=== PATIENT | female | born 1970 ===

== ENCOUNTER 2017-01-22 18:40 | Emergency (ER) | payer OTHER ==
[2017-01-22 18:41] VITALS: BMI 32.4
[2017-01-22 18:49] VITALS: BP 144/83; PULSE 91; RESP 16; TEMP 97.9; O2SAT 98
--- NOTE | 2017-01-22 19:58 | ED PDOC ---
HPI: Abdomen Time Seen by Provider: 01/22/17 19:08 Chief Complaint (Nursing): Abdominal Pain History Per: Patient History/Exam Limitations: no limitations Onset/Duration Of Symptoms: Days Outside of [place] travel?: No Current Symptoms Are (Timing): Still Present Severity: Moderate Location Of Pain/Discomfort: RUQ Quality Of Discomfort: "Pain" Associated Symptoms: Nausea, Diarrhea. denies: Fever, Chills, Vomiting, Loss Of Appetite, Back Pain, Chest Pain, Constipation, Urinary Symptoms Exacerbating Factors: None Alleviating Factors: None Last Bowel Movement: Today Additional History Per: Patient Additional Complaint(s): 47 y/o female complaining of intermittent right upper quadrant abominal pain over the last two weeks, today the pain has been persistent prompting her visit here. She also complains of nausea without vomiting, and one episode of diarrhea this morning that is now resolved. Her appetite has been normal, and food has not exacerbated her pain. She also denies any urinary complaints. PMD: Dr. Teixeira Past Medical History Vital Signs: Last Vital Signs Temp 97.9 F 01/22/17 18:46 Pulse 91 H 01/22/17 18:46 Resp 16 01/22/17 18:46 BP 144/83 01/22/17 18:46 Pulse Ox 98 01/22/17 21:54 - Medical History PMH: Diabetes, HTN, Hypercholesterolemia Denies: Colonic Polyps, Fractures - Surgical History Surgical History: Tonsillectomy Other surgeries: Hysterectomy - Family History Family History: States: Diabetes, Hypertension - Social History Current smoker - smoking cessation education provided: No Ex-Smoker (has not smoked in the last 12 months): No Alcohol: Occasional Drugs: Denies - Home Medications Home Medications: Ambulatory Orders Medication Instructions Recorded Glimepiride [amaRYL] 4 mg PO BID 08/10/15 Insulin Lispro [Humalog Kwikpen 26 unit SC ACBL 08/10/15 U-200] Insulin Lispro [Humalog Kwikpen 32 unit SC DIN 08/10/15 U-200] Sitagliptin Phos/Metformin HCl 1 tab PO BID 08/10/15 [Janumet 50-1,000 mg Tablet] Sucralfate [Carafate] 1 gm PO QID PRN #20 dose 01/22/17 - Allergies Allergies/Adverse Reactions: Allergies Allergy/AdvReac Type Severity Reaction Status Date / Time No Known Allergies Allergy Verified 10/16/16 08:16 Review of Systems ROS Statement: Except As Marked, All Systems Reviewed And Found Negative Gastrointestinal: Positive for: Nausea, Abdominal Pain Physical Exam - Reviewed Nursing Documentation Reviewed: Yes Vital Signs Reviewed: Yes - Physical Exam Appears: Positive for: Non-toxic, In Acute Distress Head Exam: Positive for: ATRAUMATIC, NORMOCEPHALIC Skin: Positive for: Warm, Dry. Negative for: Jaundice Eye Exam: Positive for: EOMI, PERRL. Negative for: Scleral icterus ENT: Negative for: Pharyngeal Erythema, Tonsillar Exudate Neck: Positive for: Painless ROM, Supple Cardiovascular/Chest: Positive for: Regular Rate, Rhythm, Chest Non Tender. Negative for: Murmur Respiratory: Positive for: Normal Breath Sounds. Negative for: Wheezing Gastrointestinal/Abdominal: Positive for: Bowel Sounds, Soft, Tenderness (RUQ ttp). Negative for: Mass, Distended, Guarding, Rebound Back: Positive for: Normal Inspection. Negative for: Decreased ROM Extremity: Positive for: Normal ROM. Negative for: Deformity Lymphatic: Negative for: Adenopathy Neurologic/Psych: Positive for: Alert. Negative for: Motor/Sensory Deficits - Laboratory Results Result Diagrams: 01/22/17 19:41 01/22/17 19:41 - ECG O2 Sat by Pulse Oximetry: 98 (RA) Pulse Ox Interpretation: Normal Medical Decision Making Medical Decision Making: Impression: RUQ pain, differential includes cholelithiasis, cholecystitis, gastritis, pancreatitis, and hepatitis. Plan: - Labs - US Gallbladder and Hepatic EXAM: US Abdomen Limited, Right Upper Quadrant CLINICAL HISTORY: 47 years old, female; Pain; Abdominal pain; Epigastric; Additional info: Ruq pain TECHNIQUE: Real-time ultrasound of the right upper quadrant with image documentation. COMPARISON: US - ABDOMEN COMPLETE 08/10/2015 1:20:04 PM FINDINGS: Liver: Fatty infiltration of the liver. Associated hepatomegaly. No intrahepatic bile duct dilation. Gallbladder: Unremarkable. No gallstones. Common bile duct: Common bile duct measures 4 mm in diameter. No stones. No dilation. Pancreas: Unremarkable as visualized. Right kidney: Unremarkable. No stones. No solid mass. No hydronephrosis. IMPRESSION: Fatty infiltration of the liver. Associated hepatomegaly. Thank you for allowing us to participate in the care of your patient. Dictated and Authenticated by: Aaron Gimenez MD 01/22/2017 9:21 PM Eastern Time ([place] & [place]) Labs demonstrate mild hyperglycemia and mild dehydration. Results discussed with patient. Stable for dc. FU with GI Attestation Scribe Attestation: Documented by Nia Goodrich acting as a scribe for Dixie Leija MD. Scribe Attestation: All medical record entries made by the Scribe were at my direction and personally dictated by me. I have reviewed the chart and agree that the record accurately reflects my personal performance of the history, physical exam, medical decision making, and the department course for this patient. I have also personally directed, reviewed, and agree with the discharge instructions and disposition. Disposition - Clinical Impression Clinical Impression: Abdominal pain, Dehydration - Patient ED Disposition Is Patient to be Admitted: No Doctor Will See Patient In The: Office Counseled Patient/Family Regarding: Studies Performed, Diagnosis, Need For Followup - Disposition Referrals: Luis Carlos Bhatia MD [Medical Doctor] - (CALL TOMORROW FOR FOLLOWUP APPOINTMENT IN 1-2 WEEKS) Disposition: Routine/Home Disposition Time: 21:54 Condition: STABLE Prescriptions: Sucralfate [Carafate] 1 gm PO QID PRN #20 dose PRN Reason: Abdominal pain Instructions: Abdominal Pain (ED), Diabetic Hyperglycemia (ED) Forms: [employer] (Cook Islander)
[2017-01-22 20:07] LABS: BASO % 0.4 % (0.0-2.0); EOS # 0.3 K/uL (0.0-0.7); EOS % 2.9 % (0.0-4.0); HEMATOCRIT 39.6 % (34.0-47.0); LYMPH # 3.6 K/uL (1.0-4.3); LYMPH % 42.2 % (20.0-40.0); MEAN CELL VOLUME 89.6 fl (81.0-99.0); MEAN CORPUSCULAR HEMOGLOBIN 28.8 pg (27.0-31.0); MEAN CORPUSCULAR HGB CONC 32.1 g/dL (33.0-37.0); MEAN PLATELET VOLUME 10.1 fl (7.2-11.7); MONO # 0.7 K/uL (0.0-0.8); MONO % 8.5 % (0.0-10.0); NEUT # 3.9 K/uL (1.8-7.0); NRBC % 0.1 % (0.0-0.0); RED CELL DISTRIBUTION WIDTH 14.3 % (11.5-14.5); WHITE BLOOD COUNT 8.6 K/uL (4.8-10.8)
[2017-01-22 20:17] LABS: ALB/GLOB RATIO 1.2 (1.0-2.1); ALKALINE PHOSPHATASE 111 U/L (38-126); ALT/SGPT 59 U/L (9-52); AST/SGOT 35 U/L (14-36); BILIRUBIN,TOTAL 0.5 mg/dl (0.2-1.3); BLOOD UREA NITROGEN 19 mg/dl (7-17); CARBON DIOXIDE 25 mmol/L (22-30); CHLORIDE 103 mmol/L (98-107); GFR AFRICAN-AMERICAN > 60; GLUCOSE,RANDOM 210 mg/dL (65-105); LIPASE 120 U/L (23-300); SODIUM 142 mmol/l (132-148); TOTAL PROTEIN 7.4 G/DL (6.3-8.2)
--- NOTE | 2017-01-23 10:07 | US ---
HISTORY: RUQ pain COMPARISON: None. TECHNIQUE: Sonographic evaluation of the right upper quadrant of the abdomen. FINDINGS: LIVER: Measures 21.6 cm in length. Diffusely increased echogenicity of the liver parenchyma. Smooth contour. No mass. No biliary ductal dilatation. GALLBLADDER: Unremarkable. No gallstones. COMMON BILE DUCT: Measures 4 mm. No stones. No dilatation. PANCREAS: Unremarkable as visualized. No mass. No ductal dilatation. RIGHT KIDNEY: Measures 11.5 cm in length. Normal echogenicity. No calculus, mass, or hydronephrosis. AORTA: No aneurysmal dilatation. IVC: Unremarkable. OTHER FINDINGS: None . IMPRESSION: Hepatomegaly. Fatty liver. No evidence of cholelithiasis or cholecystitis. Otherwise unremarkable.
== END 2017-01-22 22:28 | disposition home or self-care (01) ==
LOC: H.ER 18:40
DX: R10.9 Unspecified abdominal pain (principal); E11.65 Type 2 diabetes mellitus with hyperglycemia; E86.0 Dehydration; I10 Essential (primary) hypertension; K76.0 Fatty (change of) liver, not elsewhere classified; Z79.4 Long term (current) use of insulin

== ENCOUNTER 2017-02-12 14:01 | Emergency (ER) | payer OTHER ==
[2017-02-12 14:01] VITALS: BMI 32.4
[2017-02-12 14:30] VITALS: BP 132/81; PULSE 82; RESP 16; TEMP 97.4; O2SAT 98
[2017-02-12 15:53] LABS: BASO % 0.5 % (0.0-2.0); EOS # 0.2 K/uL (0.0-0.7); EOS % 2.3 % (0.0-4.0); HEMATOCRIT 44.3 % (34.0-47.0); LYMPH # 3.5 K/uL (1.0-4.3); LYMPH % 36.7 % (20.0-40.0); MEAN CELL VOLUME 89.6 fl (81.0-99.0); MEAN CORPUSCULAR HEMOGLOBIN 28.9 pg (27.0-31.0); MEAN CORPUSCULAR HGB CONC 32.2 g/dL (33.0-37.0); MEAN PLATELET VOLUME 11.3 fl (7.2-11.7); MONO # 0.7 K/uL (0.0-0.8); MONO % 6.9 % (0.0-10.0); NEUT # 5.1 K/uL (1.8-7.0); NEUT % 53.6 % (50.0-75.0); NRBC % 0.1 % (0.0-0.0); RED CELL DISTRIBUTION WIDTH 14.1 % (11.5-14.5); WHITE BLOOD COUNT 9.5 K/uL (4.8-10.8)
[2017-02-12 17:06] LABS: ALB/GLOB RATIO 1.1 (1.0-2.1); ALKALINE PHOSPHATASE 90 U/L (38-126); ALT/SGPT 45 U/L (9-52); AST/SGOT 53 U/L (14-36); BILIRUBIN,TOTAL 1.1 mg/dl (0.2-1.3); BLOOD UREA NITROGEN 15 mg/dl (7-17); CALCIUM 9.5 mg/dL (8.4-10.2); CARBON DIOXIDE 20 mmol/L (22-30); CHLORIDE 107 mmol/L (98-107); GFR AFRICAN-AMERICAN > 60; GLUCOSE,RANDOM 94 mg/dL (65-105); SODIUM 142 mmol/l (132-148); TOTAL PROTEIN 8.2 G/DL (6.3-8.2)
== END 2017-02-12 17:14 | disposition home or self-care (01) ==
LOC: H.ER 14:01
DX: K57.90 Diverticulosis of intestine, part unspecified, without perforation or abscess without bleeding (principal)

== ENCOUNTER 2018-06-18 12:45 | Emergency (ER) | payer OTHER ==
[2018-06-18 12:46] VITALS: BMI 32.2
[2018-06-18 13:07] VITALS: RESP 18
[2018-06-18 14:08] VITALS: BP 137/92; PULSE 89; TEMP 98.6; O2SAT 99
--- NOTE | 2018-06-18 15:04 | ED PDOC ---
HPI: Influenza Time Seen by Provider: 06/18/18 13:13 Chief Complaint: Flu-like Symptoms Chief Complaint (Provider): Flu-like Symptoms History Per: Patient Exam Limitations: no limitations Onset/Duration Of Symptoms: Days (x1) Additional complaint(s):: 48 year old female with pmhx of htn and diabetes presents to the ED for evaluation of flu-like symptoms for the past day. Pt reports a mild cough, body aches, chills, mild sore throat, and nausea, generally unrelieved by Theraflu and Alleve, last dose 1000 this morning. Otherwise denies vomiting, diarrhea, and ear pain. Additionally, pt notes chest pain with sneezing and coughing, but none at rest. Pt did not receive flu shot this season PMD: Anny Preston Past Medical History Reviewed: Historical Data, Nursing Documentation, Vital Signs Vital Signs: Last Vital Signs Temp 98.6 F 06/18/18 14:07 Pulse 89 06/18/18 14:07 Resp 18 06/18/18 13:04 BP 137/92 H 06/18/18 14:07 Pulse Ox 99 06/18/18 14:07 - Medical History PMH: Diabetes, HTN, Hypercholesterolemia Denies: Colonic Polyps, Fractures - Surgical History Surgical History: Tonsillectomy Other surgeries: hysterectomy - Family History Family History: States: Diabetes, Hypertension - Social History Current smoker - smoking cessation education provided: No Alcohol: None Drugs: Denies - Immunization History Hx Tetanus Toxoid Vaccination: No Hx Influenza Vaccination: No Hx Pneumococcal Vaccination: No - Home Medications Home Medications: Ambulatory Orders Medication Instructions Recorded Glimepiride [amaRYL] 4 mg PO BID 08/10/15 Sitagliptin Phos/Metformin HCl 1 tab PO BID 08/10/15 [Janumet 50-1,000 mg Tablet] Ciprofloxacin [Cipro] 1 tab PO BID #14 tab 10/23/17 Insulin Aspart [Novolog Flexpen] 10/23/17 Insulin Detemir [Levemir] 10/23/17 Naproxen [Naprosyn] 500 mg PO BID #20 tab 10/23/17 Rosuvastatin Calcium [Crestor] 20 mg PO DAILY 10/23/17 Tamsulosin [Flomax] 0.4 mg PO DAILY #10 cap 10/23/17 Ibuprofen [Motrin Tab] 600 mg PO Q6 PRN 7 Days tab 06/18/18 Oseltamivir Phosphate [Tamiflu] 75 mg PO BID 5 Days capsule 06/18/18 - Allergies Allergies/Adverse Reactions: Allergies Allergy/AdvReac Type Severity Reaction Status Date / Time No Known Allergies Allergy Verified 10/23/17 16:08 Review of Systems ROS Statement: Except As Marked, All Systems Reviewed And Found Negative Constitutional: Positive for: Chills, Other (body aches) ENT: Positive for: Throat Pain (mild). Negative for: Ear Pain Cardiovascular: Positive for: Chest Pain (only with sneezing and coughing) Respiratory: Positive for: Cough (mild) Gastrointestinal: Positive for: Nausea. Negative for: Vomiting, Diarrhea Physical Exam - Reviewed Nursing Documentation Reviewed: Yes Vital Signs Reviewed: Yes - Physical Exam Appears: Positive for: Uncomfortable Head Exam: Positive for: ATRAUMATIC, NORMAL INSPECTION, NORMOCEPHALIC Eye Exam: Positive for: Normal appearance, EOMI, PERRL ENT: Positive for: Normal ENT Inspection Cardiovascular/Chest: Positive for: Regular Rate, Rhythm Respiratory: Positive for: Normal Breath Sounds. Negative for: Respiratory Distress Gastrointestinal/Abdominal: Positive for: Normal Exam, Soft. Negative for: Tenderness Neurologic/Psych: Positive for: Alert, Oriented (x3) Medical Decision Making Medical Decision Making: Time: 1359 Initial Impression: flu-like symptoms Initial Plan: --Tamiflu 75mg PO --Tylenol 975mg PO --Rapid flu swab 1410 Patient informed that her diagnosis is most likely influenza, so advised to avoid contact with others, rest, and drink plenty of fluids. Will be d/c with Tamiflu x5 days to reduce severity of symptoms. Return parameters discussed and all questions answered at this time. Scribe Attestation: Documented by Ivet Aguilar, acting as a scribe for Kathleen Taylor PA-C. Provider Scribe Attestation: All medical record entries made by the Scribe were at my direction and personally dictated by me. I have reviewed the chart and agree that the record accurately reflects my personal performance of the history, physical exam, medical decision making, and the department course for this patient. I have also personally directed, reviewed, and agree with the discharge instructions and disposition. - ECG O2 Sat by Pulse Oximetry: 99 (RA) Pulse Ox Interpretation: Normal Disposition - Clinical Impression Clinical Impression: Influenza Counseled Patient/Family Regarding: Studies Performed, Diagnosis, Rx Given - Disposition Disposition: Routine/Home Disposition Time: 15:15 Condition: STABLE Additional Instructions: F/u with your primary care doctor as needed. Take Tylenol and ibuprofen for the body aches and fevers if they develop. Take Tamiflu to help reduce your symptoms. Get lots of rest and drink plenty of fluids. Prescriptions: Ibuprofen [Motrin Tab] 600 mg PO Q6 PRN 7 Days tab PRN Reason: Pain, Moderate (4-7) Oseltamivir Phosphate [Tamiflu] 75 mg PO BID 5 Days capsule Instructions: Flu, Adult (DC) Forms: [employer] (Angolan), [facility] ED School/Work Excuse Print Language: SLOVENIAN
== END 2018-06-18 15:27 | disposition home or self-care (01) ==
LOC: H.ER 12:45
DX: J11.1 Influenza due to unidentified influenza virus with other respiratory manifestations (principal); E11.9 Type 2 diabetes mellitus without complications; I10 Essential (primary) hypertension; Z79.4 Long term (current) use of insulin; Z90.710 Acquired absence of both cervix and uterus; E78.00 Pure hypercholesterolemia, unspecified